=== PATIENT | female | born 1990 | race Two or more races ===

== ENCOUNTER 2025-07-18 21:21 | Emergency (ER) | payer MEDICAID, SELFPAY ==
[2025-07-18 21:22] VITALS: BMI 27.9
[2025-07-18 21:24] VITALS: BP 132/89; PULSE 96; RESP 17; TEMP 36.7; O2SAT 100
--- NOTE | 2025-07-18 21:49 | XR_ITS ---
Examination: Complete OB ultrasound, less than 14 weeks, transabdominal Date and time of exam: July 18, 2025 2153 hours INDICATIONS: Vaginal bleeding and pelvic pain beginning 3 hours ago Technique: Obstetrical ultrasound images less than 14 weeks performed via transabdominal imaging Findings: A normal shaped single intrauterine gestation is present in the uterus. CRL 5.4 cm corresponds to 12 weeks 0 day gestational age Cardiac motion 158 BPM Subchorionic hemorrhage 3.4 x 2.9 cm Ultrasonographic survey of visible and placental structures unremarkable. Amniotic fluid volume appears appropriate for this estimated gestational age. Right ovary 4.1 cm arterial flow. Left ovary 3.3 cm arterial flow IMPRESSION: Viable intrauterine gestation 12 weeks 0 days Given the subchorionic hemorrhage, recommend short term follow-up transvaginal pelvic sonography
--- NOTE | 2025-07-18 21:49 | XR_ITS ---
Examination: Abdomen sonogram, Limited Date and time of exam: July 18, 2000 2510 0 7:00 PM INDICATIONS: Abdominal pain beginning 3 hours ago. Technique: Real-time hogan scale transabdominal sonographic images of the upper abdomen obtained. Findings: No gallstones Gallbladder wall 0.48 cm with possible edema Common bile duct 0.3 cm Pancreas 2.2 cm Liver 13.9 cm no liver lesions Normal hepatopedal portal venous flow Patent IVC IMPRESSION: Suspicious for acute acalculous cholecystitis Consider MRCP for
--- NOTE | 2025-07-18 21:49 | XR_ITS ---
Examination: Abdomen sonogram, Limited Date and time of exam: July 18, 2000 2510 0 4:00 PM INDICATIONS: Right lower abdominal pain today Technique: Real-time hogan scale transabdominal sonographic images of the upper abdomen obtained. Findings: No sonographic visualization appendix IMPRESSION: No sonographic visualization appendix
[2025-07-18 22:56] LABS: Basophils # (Auto) 0.1 Thou/mm3 (0.0-0.2); Basophils % (Auto) 0 % (0-2.5); Eosinophils # (Auto) 0.2 Thou/mm3 (0.0-0.5); Eosinophils % (Auto) 1 % (0-10); Hematocrit 38.7 % (36.0-46.0); Hemoglobin 13.1 g/dL (12.0-16.0); Immature Granulocytes Auto 0.07 Thou/mm3 (0.00-0.00); Lymphocytes # (Auto) 2.5 Thou/mm3 (1.0-4.8); Lymphocytes % (Auto) 17 % (10-50); Mean Corpuscular HGB Conc 33.9 g/dl (31.0-37.0); Mean Corpuscular Hemoglobin 30.7 pg (25.0-35.0); Mean Corpuscular Volume 91 fL (80-100); Monocytes # (Auto) 0.9 Thou/mm3 (0.0-0.8); Monocytes % (Auto) 6 % (0-12); Neutrophils # (Auto) 11.4 Thou/mm3 (1.8-7.7); Neutrophils % (Auto) 76 % (37-80); Nucleated Red Blood Cell # 0.00 Thou/mm3 (0.00-0.00); Nucleated Red Blood Cell % 0 /100 WBC (0); Platelet Count 355 Thou/mm3 (140-440); RDW Standard Deviation 42.8 fL (36.4-46.3); Red Blood Count 4.27 Miln/mm3 (4.00-5.20); White Blood Count 15.0 Thou/mm3 (3.6-11.0)
[2025-07-18 23:12] LABS: Collection Type, Urine Voided
[2025-07-18 23:20] LABS: Bacteria,Urine 1+; Bilirubin,Urine Negative (Negative); Blood,Urine 3+ (Negative); Clarity,Urine Turbid (Clear/Hazy); Color,Urine Yellow (Lt Yel-Yel); Glucose, Urine Negative (Negative); Ketones,Urine Negative (Negative); Leukocyte Esterase,Urine Positive (Negative); Nitrite,Urine Negative (Negative); PH,Urine 6.5 (5.0-7.0); Protein,Urine 1+ (Neg - Trace); RBC,Urine 3354 /hpf (0-3); Specific Gravity,Urine 1.026 (1.001-1.035); Squamous Epithelial Cell,Urine 6 /hpf (0-5); Urobilinogen,Urine Negative mg/dL (0.0-1.0); WBC,Urine 12 /hpf (0-5)
[2025-07-18 23:23] LABS: Alanine Aminotransferase 15 U/L (10-49); Albumin, Serum 4.3 gm/dL (3.5-5.0); Albumin/Globulin Ratio 1.4 (1.2-2.2); Alkaline Phosphatase 79 U/L (46-116); Anion Gap 8 (7-16); Aspartate Amino Transferase 19 U/L (0-34); BUN/Creatinine Ratio 14 Ratio (12-20); Bilirubin,Total 0.2 mg/dL (0.3-1.2); Blood Urea Nitrogen 7 mg/dL (9-23); Calcium 10.2 mg/dL (8.3-10.6); Calcium (Corrected) 10.2 mg/dL (8.5-10.1); Carbon Dioxide 24.6 mMol/L (20.0-31.0); Chloride 105 mMol/L (98-107); Creatinine (Component) 0.5 mg/dL (0.6-1.3); Estimated Creatinine Clearance 140.3 mL/min (>60); Globulin 3.0 gm/dL (2.3-3.5); Glucose 101 mg/dL (74-106); Osmolality,Calculated 273 (275-295); Potassium 4.0 mMol/L (3.4-5.1); Sodium 138 mMol/L (136-145); Total Protein 7.3 gm/dL (5.7-8.2); eGFR > 60 See Note
[2025-07-18 23:57] LABS: Beta HCG,Quantitative 48273 mIU/mL (<5.0)
--- NOTE | 2025-07-19 00:06 | EDNOTE_ITS ---
ED OB Contraction Preg RMI/HPI General Chief complaint: Abdominal Pain Stated complaint: 12 WKS PREG, VAG BLEED, ABD/BACK PAIN Time Seen by Provider: 07/18/25 21:44 Arrival date/time: 07/18/25 21:21 This is a case of 35-year-old female who came in in the emergency room due to right-sided abdominal pain associated with nausea vomiting today patient is 12 weeks 5 para 3 with 2 miscarriages Patient also have vaginal bleeding and pelvic cramping today Limitations: no limitations Related Data Home Medications ?Medication ?Instructions ?Recorded ?Confirmed Vitamin * 1 tab PO QDAY #0 tabs 03/08/23 Previous Rx's ?Medication ?Instructions ?Recorded nitrofurantoin 100 mg PO BID 10 days #20 ca ps 07/19/25 monohydrate/macrocrystals 100 mg capsule (Macrobid) Allergies Allergy/AdvReac Type Severity Reaction Status Date / Time No Known Allergies Allergy Verified 07/18/25 21:28 Review of Systems Review of Systems Systems Reviewed: All systems reviewed, normal except as documented Constitutional Constitutional: Reports system reviewed and no additional complaints, except as documented and Reports as per HPI Cardiovascular Cardiovascular: Reports system reviewed and no additional complaints, except as documented and Reports as per HPI Gastrointestinal Gastrointestinal: Reports system reviewed and no additional complaints, except as documented, Reports as per HPI, Reports abdominal pain, Reports nausea and Reports vomiting Genitourinary Genitourinary: Reports system reviewed and no additional complaints, except as documented and Reports as per HPI Musculoskeletal Musculoskeletal: Reports system reviewed and no additional complaints, except as documented and Reports as per HPI Neurologic Neurologic: Reports system reviewed and no additional complaints, except as documented and Reports as per HPI Past Medical History Past Medical History NEUROLOGIC: Negative Neurological Disorders CARDIAC: Negative Cardiac Disorders or Congestive Heart Failure RESPIRATORY: Negative Chronic Obstructive Pulmonary Disease (COPD) GASTROINTESTINAL: Negative Gastrointestinal Disorders GENITOURINARY: Negative Genitourinary Disorders or Renal Disease REPRODUCTIVE: Negative Endometriosis, Genital Herpes, Gonorrhea, Pelvic Inflammatory Disease, Previous Pregnancies, Syphilis or Uterine Prolapse MUSCULOSKELETAL: Negative Musculoskeletal Disorders ENDOCRINE: Negative Endocrine Disorders, Diabetes Mellitus Type 1 or Diabetes Mellitus Type 2 HEMATOLOGIC: Negative Blood Disorders OTHER HISTORY: Negative Hospitalization, Autoimmune Disease, Down Syndrome, Developmental Delay, Falls, Blood Transfusions, Blood Transfusion Reaction, Anesthesia Reactions, Organ Transplant, MRSA, VRSA, Vancomycin-Resistant Enterococci or Clostridium Difficile Family History FAMILY HISTORY: Negative Family Psychiatric Problems, Family Respiratory Disorders, Family Cardiac Disorders, Family Gastrointestinal Problems, Family Cancer, Family Surgery or Family Anesthesia Reaction Surgical History SURGICAL: Negative Endocrine Surgery, Ear Surgery, Abdominal Surgery, Nephrectomy, Joint Replacement, Neurologic Surgery, Mastectomy, Section or Organ Transplant Social History SMOKING STATUS: Never smoker ED Exam General Limitations: Present no limitations General appearance: Present alert, in no apparent distress and other (Patient is awake alert oriented not in distress nontoxic looking well-hydrated well- nourished) Head Head exam: Present atraumatic, normocephalic and normal inspection Eye Eye exam: Present normal appearance, PERRL and EOMI ENT ENT exam: Present normal exam, normal oropharynx and mucous membranes moist Neck Neck exam: Present normal inspection, full ROM and trachea midline; Absent tenderness Chest Chest inspection: Present normal inspection and symmetric chest wall rise; Absent tenderness Respiratory Respiratory exam: Present normal lung sounds bilaterally; Absent respiratory distress, wheezes, stridor, accessory muscle use or prolonged expiratory phase Cardiovascular Cardiovascular exam: Present regular rate, normal rhythm and normal heart sounds; Absent bradycardia, tachycardia, irregular rhythm, systolic murmur or diastolic murmur Abdominal Exam Abdominal exam: Present soft, tenderness (Mild tenderness on the right upper and right lower quadrant gravid uterus) and normal bowel sounds; Absent distention, guarding, rebound, rigidity, diminished bowel sounds, hyperactive bowel sounds, hypoactive bowel sounds, organomegaly, psoas sign, obturator sign, Mckenna's sign, Rovsing's sign or tenderness at McBurney's Point Extremities Exam Extremities exam: Present normal inspection and full ROM Back Exam Back exam: Present normal inspection and full ROM Neurological Exam Neurological exam: Present alert, oriented X3, CN II-XII intact, normal gait and reflexes normal; Absent motor sensory deficit Psychiatric Psychiatric exam: Present normal affect and normal mood Skin Skin exam: Present warm, dry, intact and normal color Course Quality Measures none Orders Category Date Time Status COVID-19 Screening Questionnaire NOW Care 07/19/25 00:04 Completed Decision to Admit X1 Care 07/19/25 00:04 Completed US OB <= 14 weeks fetus Stat Exams 07/18/25 21:49 Completed US abdomen limited Stat Exams 07/18/25 21:49 Completed US gall bladder Stat Exams 07/18/25 21:49 Completed ABO/RH Type Stat Lab 07/18/25 22:37 Completed Beta HCG,Quantitative Stat Lab 07/18/25 22:37 Completed CBC Stat Lab 07/18/25 22:37 Completed CMP [Comprehensive Metabolic Panel] Stat Lab 07/18/25 22:37 Completed Urinalysis Stat Lab 07/18/25 22:50 Completed Vital Signs Vital signs: Vital Signs Temperature 98.0 F 07/18/25 21:24 Pulse Rate 96 07/18/25 21:24 Respiratory Rate 17 07/18/25 21:24 Blood Pressure 132/89 H 07/18/25 21:24 Pulse Oximetry (%) 100 07/18/25 21:24 Oxygen Delivery Method Room Air 07/18/25 21:24 Patient is afebrile not tachycardic not tachypneic BP stable not hypoxic oxygen saturation is 100% in room air OB/Uterine Contractions MDM Narrative MDM Narrative:: This is a case of 35-year-old female who came in in the emergency room due to right-sided abdominal pain associated with nausea vomiting today patient is 12 weeks 5 para 3 with 2 miscarriages patient denies any vaginal bleeding patient have regular check up physical examination patient is awake alert oriented not in distress nontoxic looking patient on my exam initially have mild tenderness in the right upper and right lower quadrant thus I ordered an ultrasound of the gallbladder and appendix which showed that the patient have a calculus cholecystitis suspected no appendicitis patient pelvic ultrasound showed a 12 weeks with a heart rate of 158 with mild subchorionic hemorrhage patient blood test showed leukocytosis at 15,000 kidney and liver function is normal no electrolyte imbalance urinalysis showed blood in the urine and WBC in the urine suggestive of urinary tract infection initially I spoke to the surgeon due to a calculus cholecystitis and I was ordered to admit the patient for admission by hospitalist I spoke to the hospitalist regarding this patient they saw the patient here in the emergency room at the time of the exam the patient is not complaining anymore right-sided abdominal pain instead pelvic pain with vaginal bleeding thus they did not admit the patient and instead they want me to call the OB automobile body customizer for further evaluation of possible threatened Dr. Marshall was here seen and examined the patient and I was told to discharge the patient as threatened and not a calculus cholecystitis because it is only a incidental report since the patient [place] [id number] I relayed all the i nstruction to the patient patient understood very well the discharge instruction she will follow-up with the OB automobile body customizer today as scheduled for further evaluation and treatment and checkup she was prescribed with Macrobid for urinary tract infection for any worsening symptoms she will return the emergency room immediately or call 911 she was also advised to follow-up with PCP to be referred to general surgeon for acalculous cholecystitis Patient was discharged with comfortable condition walking with stable gait. Patient verbalized no further complains explained diagnosis and answered patient question. Patient is comfortable with the proposed management plan including the need to follow up with his/her primary care physician and any specialist if applicable Discussed patient for any urgent condition or worsening sx, He/She needed to go to emergency room immediately or call 911. Patient acknowledge the responsibility to follow up as instructed and to monitor her/his symptoms. For any persistence of the symptoms for more than 3-5 days return precaution advised. Discussed the result of the test and was given printed discharge instruction Patient data External records reviewed:: [facility] previous records Clinical information provided by:: patient Social determinants that could affect healthcare access:: none Patient has the following chronic illnesses:: None How is presenting disease/condition affected by chronic disease/condition?: no chronic disease Evaluation data The following diagnostics were reviewed and interpreted by me:: lab results and radiology exam(s) Lab and/or radiology exams considered but not ordered:: Reviewed Interpretation Summary: Reviewed Medications / Prescriptions Medications or Prescriptions considered but not ordered:: Given Medication administrations:: Given Consultations Consultation(s) initiated? (list below): Yes Consultation #1 (Physician, Specialty, Details): Dr. Marshall first call calls surgeon for acute acalculous cholecystitis second call seen patient here in the emergency room and I was instructed to discharge patient for threatened and not a calculus cholecystitis because the patient is asymptomatic at the time of her exam Consultation #2 (Physician, Specialty, Details): Dr. coats admit patient for acalculous cholecystitis by hospitalist Consultation #3 (Physician, Specialty, Details): dr trevino seen and examined patient under exam the patient is asymptomatic for acalculous cholecystitis patient instead should be treated for threatened because the patient is having pelvic tenderness not right upper quadrant tenderness the ultrasound is only incidental finding does patient do not need for admission Diagnosis OB Contractions Differential Diagnosis: other (Threatened ) Most likely diagnosis given after review of the tests above:: Threatened in early urinary tract infection Admission Indicated Admission indicated?: not indicated Explain why admission is indicated or not indicated:: Not indicated Admission Request Was there a request for admission?: No Admission Attestation Admission request attestation: Not indicated Disposition Plan Disposition Plan: Discharge Discharge Attestation Discharge Attestation: The patient and all family members were given an opportunity to ask questions and understood the discharge instructions. Discharge instructions specifically effects, indications for sooner follow up or return to the emergency department, and the expected course of current diagnosis. Patient condition: Stable Discharge Plan Plan Patient Disposition: HOME (Self Care) Patient condition on transfer: Stable Prescriptions/Referrals Prescriptions/Med Rec: New nitrofurantoin monohyd/m-cryst [Macrobid] 100 mg capsule 100 mg PO BID 10 Days Qty: 20 0RF Rx Instructions: must administer with a meal/food No Action Vitamin * 1 EACH tablet 1 tab PO QDAY Qty: 0 Referrals: Dereje Muse MD [Primary Care Provider] - In 1 week Problem List Clinical Impression: Abdominal pain, Acute acalculous cholecystitis, Urinary tract infection, Threatened in early Patient/Caregiver Discharge Instructions Education Materials: Urinary Tract Infections in Women, Your First Trimester ..., Understanding Miscarriage ..., ED Cholecystitis, Confirmed Additional Instructions: Follow-up with your primary care physician in 2 days for reevaluation it is very important to see your OB automobile body customizer tomorrow for your reevaluation and checkup worsening symptoms or any emergent concern call 911 or go to [facility] emergency room take your multivitamins pelvic rest safe sex is advised follow-up with your primary care physician to be referred to general surgeon for further evaluation and treatment of your calculus acute cholecystitis Print Language: [place] Stand Alone Forms: Dolores Award Info., Patient Portal Info Letter PA/CALE Supervising Physician PA/CALE Supervising Physician: dr burns
--- NOTE | 2025-07-19 00:46 | PD.GYNCONS ---
STATISTICAL SECRETARY HPI Data of Consult Primary Care Provider: Dereje Muse MD Consult Narrative History of present illness: Daxa is a 35yo with SIUP at approx 12wk presenting to ER for vaginal bleeding and pelvic cramping. No fevers/chills. cc:: cc: Review of Systems Review of Systems Narrative Review of Systems: Review of Systems Systems Reviewed: All systems reviewed, normal except as documented Constitutional Constitutional: Denies body ache(s), Denies chills, Denies fever(s) and Denies headache(s) ENT Ears, Nose, Mouth, and Throat: Denies headache(s) and Denies vertigo Cardiovascular Cardiovascular: Denies chest pain, Denies palpitations, Denies dyspnea and Denies syncope Respiratory Respiratory: Denies cough, Denies dyspnea Gastrointestinal Gastrointestinal: Denies nausea and Denies vomiting Neurologic Neurologic: Denies convulsions, Denies headache(s), Denies other visual disturbances, Denies syncope and Denies vertigo Past Medical History Family History OTHER FAMILY HX: non-contributory Past Medical History Comments PMH COMMENT: Hx of 2 term , 2 early sab at approx 8wk Meds Home Medications and Allergies Home Medications ?Medication ?Instructions ?Recorded ?Confirmed ?Type Vitamin * 1 tab PO QDAY #0 tabs 06/15/16 03/08/23 History Allergies Allergy/AdvReac Type Severity Reaction Status Date / Time No Known Allergies Allergy Verified 07/18/25 21:28 Exam - STATISTICAL SECRETARY Vital Signs Temp Pulse Resp BP Pulse Ox O2 Del Method 98.0 F 96 17 132/89 H 100 Room Air 07/18/25 21:24 07/18/25 21:24 07/18/25 21:24 07/18/25 21:24 07/18/25 21:24 07/18/25 21:24 Narrative Exam General: well developed, well nourished, no acute distress, conversant Cardiac: normal heart rate Lungs: breathing without distress Abdomen: soft, no rebound or guarding Extremities: no edema BLE STATISTICAL SECRETARY - Results Labs 07/18/25 22:37 07/18/25 22:37 Labs: Short CBC 07/18/25 Range/Units 22:37 WBC 15.0 H (3.6-11.0) Thou/mm3 Hgb 13.1 (12.0-16.0) g/dL Hct 38.7 (36.0-46.0) % Plt Count 355 (140-440) Thou/mm3 BMP 07/18/25 22:37 Sodium 138 Potassium 4.0 Chloride 105 Carbon Dioxide 24.6 BUN 7 L Creatinine 0.5 L Glucose 101 Calcium 10.2 Liver Function 07/18/25 Range/Units 22:37 Total Bilirubin 0.2 L (0.3-1.2) mg/dL AST 19 (0-34) U/L ALT 15 (10-49) U/L Alkaline Phosphatase 79 (46-116) U/L Albumin 4.3 (3.5-5.0) gm/dL Urine 07/18/25 Range/Units 22:50 Urine Color Yellow (Lt Yel-Yel) Urine Clarity Turbid A (Clear/Hazy) Urine pH 6.5 (5.0-7.0) Ur Specific Henning 1.026 (1.001-1.035) Urine Protein 1+ A (Neg - Trace) Urine Glucose (UA) Negative (Negative) Impressions Impression: Examination: Complete OB ultrasound, less than 14 weeks, transabdominal Date and time of exam: July 18, 2025 2153 hours INDICATIONS: Vaginal bleeding and pelvic pain beginning 3 hours ago Technique: Obstetrical ultrasound images less than 14 weeks performed via transabdominal imaging Findings: A normal shaped single intrauterine gestation is present in the uterus. CRL 5.4 cm corresponds to 12 weeks 0 day gestational age Cardiac motion 158 BPM Subchorionic hemorrhage 3.4 x 2.9 cm Ultrasonographic survey of visible and placental structures unremarkable. Amniotic fluid volume appears appropriate for this estimated gestational age. Right ovary 4.1 cm arterial flow. Left ovary 3.3 cm arterial flow IMPRESSION: Viable intrauterine gestation 12 weeks 0 days Given the subchorionic hemorrhage, recommend short term follow-up transvaginal pelvic sonography ---- Examination: Abdomen sonogram, Limited Date and time of exam: July 18, 2000 2510 0 7:00 PM INDICATIONS: Abdominal pain beginning 3 hours ago. Technique: Real-time hogan scale transabdominal sonographic images of the upper abdomen obtained. Findings: No gallstones Gallbladder wall 0.48 cm with possible edema Common bile duct 0.3 cm Pancreas 2.2 cm Liver 13.9 cm no liver lesions Normal hepatopedal portal venous flow Patent IVC IMPRESSION: Suspicious for acute acalculous cholecystitis Assessment and Plan Assessment and plan (1) Threatened in early : Status: Acute Assessment and plan: Daxa is a 35yo with SIUP at approx 12wk with vaginal bleeding and cramping related to 3.4 x 2.9cm subchorionic hematoma. Vitals wnl, afebrile, benign exam. Incidental finding of edema of gallbladder wall. Patient does not endorse any abdominal pain other than the pelvic cramping. No sx of cholecystitis. Recommendations: -Safe for discharge home at this time -Patient is established with Dr. Guillaume (OBGYN) at [facility], she has an appointment already tomorrow which I advised her to keep -Advised her on pelvic rest, no intercourse or orgasm, and no exertional exercise or heavy lifting until cleared by her OBGYN (2) Subchorionic hematoma in first trimester: Status: Acute (2) Subchorionic hematoma in first trimester Qualifiers: Fetus number: single or unspecified fetus Qualified Code(s): O41.8X10 - Other specified disorders of amniotic fluid and membranes, first trimester, not applicable or unspecified; O46.8X1 - Other antepartum hemorrhage, first trimester
[2025-07-19 00:47] VITALS: BP 127/76; PULSE 78; RESP 18; O2SAT 100
== END 2025-07-19 00:49 | disposition home or self-care (01) ==
PROVIDERS: Nurse Practitioner Family; Emergency Provider Emergency Medicine; PCP Family Medicine
DX: R10.9 Unspecified abdominal pain (principal); O23.41 Unspecified infection of urinary tract in pregnancy, first trimester; N39.0 Urinary tract infection, site not specified; Z3A.12 12 weeks gestation of pregnancy; O20.0 Threatened abortion; O99.611 Diseases of the digestive system complicating pregnancy, first trimester; K81.9 Cholecystitis, unspecified
CPT/HCPCS: 36415; 76705; 76801; 80053; 81001; 84702; 85025; 86900; 86901; 99283

== ENCOUNTER 2025-08-17 18:45 | Emergency (ER) | payer MEDICAID, SELFPAY ==
[2025-08-17 18:52] VITALS: BP 128/81; PULSE 82; RESP 16; TEMP 37.2; O2SAT 98; BMI 28.7
--- NOTE | 2025-08-17 18:55 | XR_ITS ---
Examination: Complete OB ultrasound greater than 14 weeks Date and time of exam: August 17, 2025 1921 hrs. Indications: Pelvic pain beginning 2 weeks ago with vaginal bleeding today Findings: Viable intrauterine single fetus with single amniotic sac presentation cephalic Cardiac motion 153 BPM Placenta posterior grade 1 Umbilical cord insertion 3 vessel seen Amniotic fluid volume adequate spine anterior Cervix 4.3 cm Ovaries obscured by bowel gas Composite estimated gestational age based on BPD, head circumference, abdominal circumference, femur length is 16 weeks 1 day Estimated weight 143 g. Survey of intracranial anatomy, spinal anatomy, abdominal anatomy, four-chamber heart performed with no abnormalities identified. Impression: Viable intrauterine gestation cephalic presentation.
--- NOTE | 2025-08-17 18:56 | PD.EDRME ---
Rapid Medical Screening Exam FOR[facility]LY [facility], [facility] Arrival date/time: 08/17/25 18:45 35F at approximately 16 weeks and with no significant PMH presents to ED with 2 days of pelvic pain and vaginal spotting. Chief Complaint: Abdominal Pain Vital signs: Vital Signs Temperature 98.9 F 08/17/25 18:52 Pulse Rate 82 08/17/25 18:52 Respiratory Rate 16 08/17/25 18:52 Blood Pressure 128/81 08/17/25 18:52 Pulse Oximetry (%) 98 08/17/25 18:52 Oxygen Delivery Method Room Air 08/17/25 18:52
[2025-08-17] MEDS: ACETAMINOPHEN 500 MG TABLET 1000 MG PO (19:03)
[2025-08-17 19:29] LABS: Basophils # (Auto) 0.1 Thou/mm3 (0.0-0.2); Basophils % (Auto) 0 % (0-2.5); Eosinophils # (Auto) 0.2 Thou/mm3 (0.0-0.5); Eosinophils % (Auto) 1 % (0-10); Hematocrit 36.5 % (36.0-46.0); Hemoglobin 12.3 g/dL (12.0-16.0); Immature Granulocytes Auto 0.11 Thou/mm3 (0.00-0.00); Lymphocytes # (Auto) 3.2 Thou/mm3 (1.0-4.8); Lymphocytes % (Auto) 18 % (10-50); Mean Corpuscular HGB Conc 33.7 g/dl (31.0-37.0); Mean Corpuscular Hemoglobin 30.3 pg (25.0-35.0); Mean Corpuscular Volume 90 fL (80-100); Monocytes # (Auto) 1.1 Thou/mm3 (0.0-0.8); Monocytes % (Auto) 6 % (0-12); Neutrophils # (Auto) 13.6 Thou/mm3 (1.8-7.7); Neutrophils % (Auto) 75 % (37-80); Nucleated Red Blood Cell # 0.00 Thou/mm3 (0.00-0.00); Nucleated Red Blood Cell % 0 /100 WBC (0); Platelet Count 319 Thou/mm3 (140-440); RDW Standard Deviation 42.7 fL (36.4-46.3); Red Blood Count 4.06 Miln/mm3 (4.00-5.20); White Blood Count 18.2 Thou/mm3 (3.6-11.0)
[2025-08-17 19:50] LABS: Alanine Aminotransferase 10 U/L (10-49); Albumin, Serum 4.1 gm/dL (3.5-5.0); Albumin/Globulin Ratio 1.5 (1.2-2.2); Alkaline Phosphatase 71 U/L (46-116); Anion Gap 10 (7-16); Aspartate Amino Transferase 17 U/L (0-34); BUN/Creatinine Ratio 10 Ratio (12-20); Bilirubin,Total 0.2 mg/dL (0.3-1.2); Blood Urea Nitrogen < 5 mg/dL (9-23); Calcium 9.0 mg/dL (8.3-10.6); Calcium (Corrected) 9.0 mg/dL (8.5-10.1); Carbon Dioxide 21.6 mMol/L (20.0-31.0); Chloride 106 mMol/L (98-107); Creatinine (Component) 0.5 mg/dL (0.6-1.3); Estimated Creatinine Clearance 142.1 mL/min (>60); Globulin 2.8 gm/dL (2.3-3.5); Glucose 84 mg/dL (74-106); Osmolality,Calculated 271 (275-295); Potassium 4.0 mMol/L (3.4-5.1); Sodium 138 mMol/L (136-145); Total Protein 6.9 gm/dL (5.7-8.2); eGFR > 60 See Note
[2025-08-17 20:04] LABS: Collection Type, Urine Clean Catch
--- NOTE | 2025-08-17 20:07 | PD.EDABDPN ---
ED Abdominal Pain RME/HPI General Chief Complaint: Abdominal Pain Stated complaint: PELVIC PAIN, 16 WEEKS PREG Arrival date/time: 08/17/25 18:45 RME / HPI RME / HPI narrative: 08/17/25 18:45 35F at approximately 16 weeks and with no significant PMH presents to ED with 2 days of pelvic pain and vaginal spotting. DR. GARCIA MAIN ED EVALUATION: 35 y/o GA 16 week female presents to ED c/o sharp BLQ abdominal pain, left greater than right, and brown discharge x 1 day. Patient was seen here 1 month ago for vaginal bleeding and underwent pelvic US demonstrating a uterine hematoma. Patient reports bleeding stopped the next day. No other concerns or complaints expressed at this time. Related Data Home Medications ?Medication ?Instructions ?Recorded ?Confirmed Vitamin * 1 tab PO QDAY #0 tabs 06/15/16 03/08/23 Allergies Allergy/AdvReac Type Severity Reaction Status Date / Time No Known Allergies Allergy Verified 07/18/25 21:28 Review of Systems Review of Systems Systems Reviewed: All systems reviewed, normal except as documented ED Exam Narrative Physical exam: Generally patient is alert and oriented x 3 in no obvious distress, heart is regular rate and rhythm, lungs clear to auscultation equal laterally, abdomen is soft gravid nondistended nontender currently. Extremities show no edema. Skin is warm pale and dry. Neurologic exam Celina Coma Scale of 15. Course Quality Measures none Orders Category Date Time Status US OB >= 14 weeks Fetus Stat Exams 08/17/25 18:55 Completed ABO/RH Type Stat Lab 08/17/25 19:15 Completed Beta HCG,Quantitative Stat Lab 08/17/25 19:15 Completed CBC Stat Lab 08/17/25 19:15 Completed CMP [Comprehensive Metabolic Panel] Stat Lab 08/17/25 19:15 Completed UA [Urinalysis] Stat Lab 08/17/25 19:58 Completed Urine Culture Stat Lab 08/17/25 19:58 Received Acetaminophen Tab [Tylenol ES Tab] Med 08/17/25 18:55 Discontinued 1,000 mg PO X1 ONE Vital Signs Vital signs: Vital Signs Temperature 98.9 F 08/17/25 18:52 Pulse Rate 82 08/17/25 18:52 Respiratory Rate 16 08/17/25 18:52 Blood Pressure 128/81 08/17/25 18:52 Pulse Oximetry (%) 98 08/17/25 18:52 Oxygen Delivery Method Room Air 08/17/25 18:52 Abdominal Pain MDM MDM Narrative MDM Narrative:: Scribe Attestation: I, Monica Perkins, am scribing for and in the presence of Dr. Garcia. Provider Notation: Although this document has been carefully reviewed, there may still be some phonetic and other typographical errors. These errors are purely grammatical due to imperfections in the software program and should not be construed in any way to compromise the substance of the patient's medical care during this visit. I interpreted all labs. Urine is not infected. OB ultrasound showed a live 16-week fetus with heart rate in the 150s. No abnormality. No placenta previa. Patient is stable for discharge. Patient data External records reviewed:: [facility] previous records (Reviewed prior ED records from 07/19/25. Patient was seen for Abdominal pain.) Clinical information provided by:: patient Social determinants that could affect healthcare access:: none Patient has the following chronic illnesses:: None reported How is presenting disease/condition affected by chronic disease/condition?: no chronic disease Evaluation data The following diagnostics were reviewed and interpreted by me:: lab results and radiology exam(s) Lab and/or radiology exams considered but not ordered:: None Interpretation Summary: RADIOLOGY US: Findings: Viable intrauterine single fetus with single amniotic sac presentation cephalic Cardiac motion 153 BPM Placenta posterior grade 1 Umbilical cord insertion 3 vessel seen Amniotic fluid volume adequate spine anterior Cervix 4.3 cm Ovaries obscured by bowel gas Composite estimated gestational age based on BPD, head circumference, abdominal circumference, femur length is 16 weeks 1 day Estimated weight 143 g. Survey of intracranial anatomy, spinal anatomy, abdominal anatomy, four-chamber heart performed with no abnormalities identified. Impression: Viable intrauterine gestation cephalic presentation. Medications / Prescriptions Medications or Prescriptions considered but not ordered:: None Medication administrations:: Medication Administration History Discontinued Medications Acetaminophen (Acetaminophen 500 Mg Tablet) 1,000 mg PO X1 ONE Stop: 08/17/25 18:56 Last Admin: 08/17/25 19:03 Dose: 1,000 mg Documented By: AMANDA See above if any Consultations Consultation(s) initiated? (list below): No Diagnosis Differential diagnosis abdominal pain: abdominal pain, calculus of kidney, gastroenteritis, small bowel obstruction and other (UTI, Cystitis, Spontaneous ) Most likely diagnosis given after review of the tests above:: None Admission Indicated Admission indicated?: not indicated Explain why admission is indicated or not indicated:: Patient does not meet admission criteria Admission Request Was there a request for admission?: No Disposition Plan Disposition Plan: Discharge Discharge Attestation Discharge Attestation: The patient and all family members were given an opportunity to ask questions and understood the discharge instructions. Discharge instructions specifically effects, indications for sooner follow up or return to the emergency department, and the expected course of current diagnosis. Patient condition: Stable Discharge Plan Plan Patient Disposition: HOME (Self Care) Prescriptions/Referrals Prescriptions/Med Rec: No Action Vitamin * 1 EACH tablet 1 tab PO QDAY Qty: 0 Referrals: Dereje Muse MD [Primary Care Provider, Family Practice] - In 1 week Problem List Clinical Impression: Abdominal pain, Patient/Caregiver Discharge Instructions Additional Instructions: Tylenol for pain. Follow-up with your [facility] physician. Return to ER as needed or if condition worsens. Print Language: French Stand Alone Forms: Dolores Award Info., Patient Portal Info Letter
[2025-08-17 20:08] LABS: Bacteria,Urine Rare; Bilirubin,Urine Negative (Negative); Blood,Urine Negative (Negative); Clarity,Urine Clear (Clear/Hazy); Color,Urine Lt-Yellow (Lt Yel-Yel); Glucose, Urine Negative (Negative); Ketones,Urine Negative (Negative); Leukocyte Esterase,Urine Negative (Negative); Nitrite,Urine Negative (Negative); PH,Urine 6.5 (5.0-7.0); Protein,Urine Negative (Neg - Trace); RBC,Urine 2 /hpf (0-3); Specific Gravity,Urine 1.014 (1.001-1.035); Squamous Epithelial Cell,Urine 7 /hpf (0-5); Urobilinogen,Urine Negative mg/dL (0.0-1.0); WBC,Urine 3 /hpf (0-5)
[2025-08-17 20:16] VITALS: BP 116/77; PULSE 82; RESP 19; TEMP 36.7; O2SAT 96
[2025-08-17 20:24] LABS: Beta HCG,Quantitative 17017 mIU/mL (<5.0)
[2025-08-17 21:38] VITALS: BP 89/58; PULSE 66; RESP 19; TEMP 36.7; O2SAT 100
== END 2025-08-17 21:46 | disposition home or self-care (01) ==
PROVIDERS: Physician Assistant; Emergency Provider Emergency Medicine; PCP Family Medicine
DX: O26.892 Other specified pregnancy related conditions, second trimester (principal); Z3A.16 16 weeks gestation of pregnancy; R10.2 Pelvic and perineal pain
CPT/HCPCS: 36415; 76805; 80053; 81001; 84702; 85025; 86900; 86901; 87086; 99283; A9270

== ENCOUNTER 2025-09-12 09:50 | Outpatient (AMB) | payer MEDICAID, SELFPAY ==
[2025-09-12 10:00] VITALS: BP 124/82; PULSE 78; RESP 16; TEMP 36.6; O2SAT 98
--- NOTE | 2025-09-12 10:00 | AMB.OBINITIA ---
Vital Signs 09/12/25 10:00 Height 1.55 m Height Method Stated Weight 72.235 kg Weight Measurement Method Standing Scale BMI 30.0 BP 124/82 Blood Pressure Source Automatic Cuff Blood Pressure Location Left Upper Arm Position Sitting Respiration 16 Pulse 78 Pulse Source Monitor Temp 97.8 F Temp Source Oral Pulse Oximetry (%) 98 Oxygen Delivery Method Room Air Allergies/Home Meds Allergies & Medications Allergies No Known Allergies Allergy (Verified 09/12/25 10:03) Medication Reconciliation Vitamin * 1 tab PO QDAY #0 tabs 06/15/16 [History Confirmed 09/12/25] aspirin 81 mg tablet 81 mg PO QDAY 09/12/25 [History Confirmed 09/12/25] Intake Visit Data Collection New Patient or Established: Established Patient (seen at [facility] within 3 years) Reason for Visit:: TRANSFER INITIAL CARE Seen by Clinical Staff ONLY (RN/MA): No Supervisor Lending Activities Required: No Do You Feel Safe at Home: Yes Authorities Contacted: N/A PCP or OBGYN visit in last 3 months: Yes Hx Now: Yes Are you currently on any form of Control: No Last menstrual period: 04/24/25 Pain Present Currently: No Pain Scale Used: Almendarez-Georges/Numerical Pain scale:: 0 Smoking Status Smoking Status: Never smoker Questionnaires Covid-19 Vaccine Questionnaire Has patient been vacinated for Covid-19 Have you been vacinated for Covid-19: No PHQ-9 PHQ-2 Over the last 2 weeks, how often have you been bothered by any of the following problems? 1. Little interest or pleasure in doing things: not at all 2. Feeling down, depressed, or hopeless: not at all Total score: 0 PHQ-9 3. Trouble falling or staying asleep, or sleeping too much: Not at all 4. Feeling tired or having little energy: Not at all 5. Poor appetite or overeating: Not at all 6. Feeling bad about yourself - or that you are a failure or have let yourself or your family down: Not at all 7. Trouble concentrating on things, such as reading the newspaper or watching television: Not at all 8. Moving or speaking so slowly that other people could have noticed? - Or the opposite - being so fidgety or restless that you have been moving around a lot more than usual: not at all 9. Thoughts that you would be better off or of hurting yourself in some way: Not at all Total score: 0 Source: Developed by Drs. Joselo Krishnamurthy, Gregoria Burgos, Baljinder Llanes and colleagues, with an educational barb from [employer]. Depression screen completed yes Social History Living Situation History Marital Status: Lives With: Family Housing: House Tobacco History Smoking Status: Never smoker Second Hand Smoke Exposure: No Alcohol History Alcohol Intake: Never Domestic Abuse History Do You Feel Safe at Home: Yes History of Present Illness HPI Narrative ?35 Years old at gestational age20 weeks based on last US in July 18 2025 at 12 weeks /EDC is 01/30/2026 No complaints so far Here for first visit LPS within 2 years LMP Ultrasound medical problems Allergies NKDA Surgical history negative social history negative OB Ultrasound OB Ultrasound Ultrasound technique: transabdominal Gestational sac assessment: Presence, location, size, shape: 07/18/2025 c/w 12 weeks /EDC based on that is 01/30/2026 [employer]: Past Medical History Past Medical History: No Hx Neurological Disorders, No Hx Cardiac Disorders, No Hx Blood Disorders, No Hx Gastrointestinal Disorders, No Hx Renal Disease, No Hx Diabetes Mellitus Type 1 and No Hx Diabetes Mellitus Type 2 OB Initial Visit OB Flowsheet OB Flowsheet Initial Weight: Not Recorded Date <del>?</del> EGA Weight BP Alb Glu CTX Pres Fundal ht FHR Mov Dilation Station Effacement Hx Notes Visit Note 09/12/25 <del>?</del> 20w 0d 72.235 kg 124/82 20 141 active Menstrual History Menstrual reliability: definite Flow: heavy Menstrual regularity: irregular Monthly: Yes Age at menarche: 15 On control pills at conception: No Associated symptoms (LMP): Reports nausea and breast tenderness Other symptoms: no more bleeding since first trimester OB History : 5 Para: 2 Hx Total # of Abortions (Spontaneous & Elective): 2 # of Living Children: 2 Delivery History 1st : Child's name: WALT date: 03/09/23 sex: male Gestational age at delivery (weeks): 39 Delivery type: vaginal weight (lbs): 3175.147 g Delivery complications: NONE History of depression before or after : No 2nd : Child's name: AUSTYN HELTON date: 08/31/24 sex: female Gestational age at delivery (weeks): 38 Delivery type: vaginal weight (lbs): 2993.71 g Delivery complications: NONE History of depression before or after : No Infection History & Risk Evaluation History of STDs: none HIV risk evaluation: low risk Hepatitis B risk evaluation: low risk Patient or partner has history of Genital Herpes: No Genetic Screening & History Genetic Screening/Teratology Counseling - Includes patient, baby's father, or anyone in either family with: 1. Patient's age 35 years or older as of estimated date of delivery: No 2. Thalassemia (Citizen Of [place], [place], Mediterranean, or Background); MCV less than 80: No 3. Neural Tube Defect (Meningomyelocele, Spina Bifida, or Anencephaly): No 4. Congenital Heart Defect: No 5. Down Syndrome: No 6. Azar-Sachs (Ashkenazi Zoroastrianism, Cajun, Greek Ivorian): No 7. Andrade Disease (Ashkenazi Zoroastrianism): No 8. Familial Dysautonomia (Ashkenazi Zoroastrianism): No 9. Sickle Cell Disease or Trait (): No 10. Hemophilia or other blood disorders: No 11. Muscular Dystrophy: No 12. Cystic Fibrosis: No 13. Dina's Chorea: No 14. Mental Retardation/Autism: No 15. Other inherited genetic or chromosomal disorder: No 16. Maternal Metabolic Disorder (EG,TYPE 1 Diabetes, PKU): No 17. Patient or baby's father had a child with defects not listed above: No 18. Recurrent loss or a stillbirth: No 19. Medications (including supplements, vitamins, herbs or otc drugs)/illicit/recreational drugs/alcohol since last menstrual period: No 20. Any other: No Infection History 1. Live with someone with TB or exposed to TB: No 2. Rash or viral illness since last menstrual period: No 3. Hepatitis B,C: No Other (see comments) Source: [employer] Review of Systems Review of Systems Systems Reviewed: All systems reviewed, normal except as documented Gastrointestinal Gastrointestinal: Reports nausea Exam Narrative Physical exam: Ob Exam Size equal to dates / 20 cm uterus non tender Occasional/ contractions non tender FHR is feta presentation is variable Labs done at [facility] and gender is male on NIPT, AFP is negative on 08/17/2025 Ob labs done 06/09/2025 at [facility] O positive , RPR NR HbsAg is negative HIV NR Rubella Immune Hb 13.5 , Platelets [address] and Urine tox screen are all negative Alert and oriented x 3 General PE no shortness of breath Pain no chest pain no palpitations Chest clear bilaterally no additional sounds, no wheezing no rales CVS regular rate and rhythm No CVAT Abdomen nontender, normal bowel sounds No guarding no rigidity No hernias Office Procedures OBC Clinic LOC & Office Proc's Nursing/Assessment Patient Status: Established Patient OB Clinic Nursing Assessment: Medication Reconciliation, Update PMH in EMR and Vital Signs OB Clinic Coordination of Care: Complex Care and Chronic Disease 1-5, Consent,records obtained, informed consent, Education Simp Pt/Fam, 1 Ins Authorization, Lab and Imaging orders, Results/Orders obtained and Staff clarify orders Special Needs: Heart tones Established Patient Charge Established Patient Point Assignment: 150 Established Patient Point Charge: EP Level 4 (120-155) Assessment & Plan Diagnosis / Problem List (1) : Status: Inactive (2) : Status: Acute Plan: Patient has a anatomy scan scheduled for tomorrow and will follow up in 4 weeks doing well Routine care Last had elevated BP towards the end continue pills and baby ASA Plan 4 weeks Additional Plan next visit needs RPR, One hour GTT and CBC Follow Up: 4 Weeks
== END 2025-09-12 10:42 | disposition home or self-care (01) ==
LOC: HODSOBC 09:50
PROVIDERS: Supervising Provider Obstetrics & Gynecology; Visit Provider Obstetrics & Gynecology
DX: Z34.82 Encounter for supervision of other normal pregnancy, second trimester (principal); Z3A.20 20 weeks gestation of pregnancy
CPT/HCPCS: 99214; G0463

== ENCOUNTER 2025-10-10 10:17 | Outpatient (AMB) | payer MEDICAID, SELFPAY ==
[2025-10-10 10:31] VITALS: BP 114/79; PULSE 83; RESP 18; TEMP 36.6; O2SAT 98; BMI 31.7
--- NOTE | 2025-10-10 10:31 | OBCLNT_ITS ---
Vital Signs 10/10/25 10:31 Height 1.55 m Height Method Stated Weight 76.204 kg Weight Measurement Method Standing Scale BMI 31.7 BP 114/79 Blood Pressure Source Automatic Cuff Blood Pressure Location Right Upper Arm Position Sitting Respiration 18 Pulse 83 Pulse Source Monitor Temp 97.8 F Temp Source Temporal Artery Scan Pulse Oximetry (%) 98 Oxygen Delivery Method Room Air Allergies/Home Meds Allergies & Medications Allergies No Known Allergies Allergy (Verified 10/10/25 10:32) Medication Reconciliation Vitamin * 1 tab PO QDAY #0 tabs 06/15/16 [History Confirmed 10/10/25] aspirin 81 mg tablet 81 mg PO QDAY 09/12/25 [History Confirmed 10/10/25] Intake Visit Data Collection New Patient or Established: Established Patient (seen at [facility] within 3 years) Reason for Visit:: OBC Seen by Clinical Staff ONLY (RN/MA): No Cake Mixer Required: No Do You Feel Safe at Home: Yes Authorities Contacted: N/A PCP or OBGYN visit in last 3 months: Yes Date of Last PCP or OBGYN visit: 09/12/25 Hx Now: Yes Are you currently on any form of Control: No Pain Present Currently: No Pain Scale Used: Almendarez-Georges/Numerical Pain scale:: 0 Smoking Status Smoking Status: Never smoker Immunizations Flu Vaccine in the Last 12 Months: No Flu Vaccine Exclusion Criteria: No Exclusion Criteria Questionnaires Covid-19 Vaccine Questionnaire Has patient been vacinated for Covid-19 Have you been vacinated for Covid-19: No PHQ-9 PHQ-2 Over the last 2 weeks, how often have you been bothered by any of the following problems? 1. Little interest or pleasure in doing things: not at all 2. Feeling down, depressed, or hopeless: not at all Total score: 0 PHQ-9 3. Trouble falling or staying asleep, or sleeping too much: Not at all 4. Feeling tired or having little energy: Not at all 5. Poor appetite or overeating: Not at all 6. Feeling bad about yourself - or that you are a failure or have let yourself or your family down: Not at all 7. Trouble concentrating on things, such as reading the newspaper or watching television: Not at all 8. Moving or speaking so slowly that other people could have noticed? - Or the opposite - being so fidgety or restless that you have been moving around a lot more than usual: not at all 9. Thoughts that you would be better off or of hurting yourself in some way: Not at all Total score: 0 If you checked off any problems, how difficult have these problems made it for you to do your work, take care of things at home, or get along with other people?: not difficult at all Source: Developed by Drs. Joselo Krishnamurthy, Gregoria Burgos, Baljinder Llanes and colleagues, with an educational barb from [employer]. Depression screen completed yes Social History Living Situation History Marital Status: Lives With: Family Housing: House Tobacco History Smoking Status: Never smoker Second Hand Smoke Exposure: No Alcohol History Alcohol Intake: Never Domestic Abuse History Do You Feel Safe at Home: Yes HAM SAWYER: Past Medical History Past Medical History: No Hx Neurological Disorders, No Hx Cardiac Disorders, No Hx Blood Disorders, No Hx Gastrointestinal Disorders, No Hx Renal Disease, No Hx Diabetes Mellitus Type 1 and No Hx Diabetes Mellitus Type 2 Care OB Visit Log OB Flowsheet Initial Weight: Not Recorded Date -?-?-?-?-?-?-?-?-?-?-?-?- EGA Weight BP Alb Glu CTX Pres Fundal ht FHR Mov Dilation Station Effacement Hx Notes Visit Note 09/12/25 -?-?-?-?-?-?-?-?-?-?-?-?- 20w 0d 72.235 kg 124/82 20 141 active 10/10/25 -?-?-?-?-?-?-?-?-?-?-?-?- 24w 0d 76.204 kg 114/79 absent unknown 24 145 active Reports good movement. Denies leaking, bleeding, contractions. No OB complaints We reviewed 20-week ultrasound. Third trimester labs ordered today. Discussed labor precautions. Increase fluids. Return in 4 weeks OB to JANET Calculator Estimated Delivery Date Method Current WG Current Estimate 01/30/26 Ultrasound #1 24w 0d Other Estimates 01/30/26 Ultrasound #2 24w 0d 01/30/26 Manual 24w 0d final janet: , EFW 64% Notes Visit Date: 09/12/25 Last Updated by: Nat Ramirez MD at 35 years of age , transfer from [facility] , NIPT negative , AFP negative O Positive , Antibody screen negative / GC and CT negative 20 weeks today by US on 07/18/2025 in ED at 12 weeks No more bleeding Office Procedures OBC Clinic LOC & Office Proc's Nursing/Assessment Patient Status: Established Patient OB Clinic Nursing Assessment: Medication Reconciliation, Update PMH in EMR and Vital Signs OB Clinic Coordination of Care: Complex Care and Chronic Disease 1-5, Education Complex Pt/Fam, Consent,records obtained, informed consent, Results/Orders obtained and Staff clarify orders Special Needs: Heart tones Established Patient Charge Established Patient Point Assignment: 125 Established Patient Point Charge: EP Level 4 (120-155) Assessment & Plan Diagnosis / Problem List (1) Encounter for supervision of high risk in second trimester, antepartum: Status: Acute Plan Third trimester labs ordered today. Discussed labor precautions. Increase fluids. Continue prenatals. Return in 4 weeks OB check Additional Plan Follow Up: 4 Weeks (obc)
== END 2025-10-10 11:04 | disposition home or self-care (01) ==
LOC: HODSOBC 10:17
PROVIDERS: Supervising Provider Advanced Practice Midwife; Visit Provider Advanced Practice Midwife
DX: O09.92 Supervision of high risk pregnancy, unspecified, second trimester (principal); Z3A.24 24 weeks gestation of pregnancy
CPT/HCPCS: 99214; G0463

== ENCOUNTER 2025-11-09 09:41 | Outpatient (AMB) | payer MEDICAID, SELFPAY ==
[2025-11-09 09:56] VITALS: BP 122/85; PULSE 84; RESP 18; TEMP 36.5; O2SAT 98; BMI 32.8
--- NOTE | 2025-11-09 09:56 | AMB.OBPNC ---
Vital Signs 11/09/25 09:56 Height 1.55 m Height Method Stated Weight 79.038 kg Weight Measurement Method Standing Scale BMI 32.8 BP 122/85 H Blood Pressure Source Automatic Cuff Blood Pressure Location Right Upper Arm Position Sitting Respiration 18 Pulse 84 Pulse Source Monitor Temp 97.7 F Temp Source Temporal Artery Scan Pulse Oximetry (%) 98 Oxygen Delivery Method Room Air Allergies/Home Meds Allergies & Medications Allergies No Known Allergies Allergy (Verified 11/09/25 10:03) Medication Reconciliation Vitamin * 1 tab PO QDAY #0 tabs 06/15/16 [History Confirmed 11/09/25] aspirin 81 mg tablet 81 mg PO QDAY 09/12/25 [History Confirmed 11/09/25] Immunizations Immunizations Flu Vaccine in the Last 12 Months: No Flu Vaccine Exclusion Criteria: No Exclusion Criteria Care OB Visit Log OB Flowsheet Initial Weight: Not Recorded Date <del>?</del> EGA Weight BP Alb Glu CTX Pres Fundal ht FHR Mov Dilation Station Effacement Hx Notes Visit Note 09/12/25 <del>?</del> 20w 0d 72.235 kg 124/82 20 141 active 10/10/25 <del>?</del> 24w 0d 76.204 kg 114/79 absent unknown 24 145 active Reports good movement. Denies leaking, bleeding, contractions. No OB complaints We reviewed 20-week ultrasound. Third trimester labs ordered today. Discussed labor precautions. Increase fluids. Return in 4 weeks OB to 11/09/25 <del>?</del> 28w 2d 79.038 kg 122/85 absent unknown 28 145 active Reports good movement. Denies leaking, bleeding, contractions. Patient has a follow-up ultrasound December 27. He maternal- medicine December 27. Discussed labor precautions. Discussed GDM diet. Patient scheduled for 3-hour GTT 1. Return in 3 weeks OB check: JANET Calculator Estimated Delivery Date Method Current WG Current Estimate 01/30/26 Ultrasound #1 28w 2d Other Estimates 01/30/26 Ultrasound #2 28w 2d 01/30/26 Manual 28w 2d final janet: 01/30/26, EFW 64% Notes Visit Date: 11/09/25 Last Updated by: Gely Becker CNM 3rd tri lab: A1: 5.5, , 1hr: 159, rpr;;nr 11/01 sono: 27wk, EFW: 64%.no previa Visit Date: 09/12/25 Last Updated by: Nat Ramirez MD at 35 years of age , transfer from [facility] , NIPT negative , AFP negative O Positive , Antibody screen negative / GC and CT negative 20 weeks today by US on 07/18/2025 in ED at 12 weeks No more bleeding Office Procedures OBC Clinic LOC & Office Proc's Nursing/Assessment Patient Status: Established Patient OB Clinic Nursing Assessment: Medication Reconciliation, Update PMH in EMR and Vital Signs OB Clinic Coordination of Care: Complex Care and Chronic Disease 1-5, Education Complex Pt/Fam, Consent,records obtained, informed consent, Lab and Imaging orders, Results/Orders obtained and Staff clarify orders Special Needs: Heart tones Established Patient Charge Established Patient Point Assignment: 140 Established Patient Point Charge: EP Level 4 (120-155) Assessment & Plan Diagnosis / Problem List (1) Encounter for supervision of high risk in second trimester, antepartum: Status: Acute Plan 3-hour GTT. Discussed labor precautions. Discussed prelabor precautions. All discussed GDM diet. Increase fluids return in 3 weeks OB check Additional Plan Follow Up: 3 Weeks (obc)
== END 2025-11-09 10:02 | disposition home or self-care (01) ==
LOC: HODSOBC 09:41
PROVIDERS: Supervising Provider Advanced Practice Midwife; Visit Provider Advanced Practice Midwife
DX: O09.93 Supervision of high risk pregnancy, unspecified, third trimester (principal); Z3A.28 28 weeks gestation of pregnancy
CPT/HCPCS: 99214; G0463